=== PATIENT | female | born 1985 | race Caucasian/White ===

== ENCOUNTER 2019-01-15 18:48 | Emergency (ER) | payer OTHER ==
[~2019-01-15] VITALS: Ht 152.4 cm; Wt 100.5 kg
[~2019-01-15 18:48] MED LIST: AMOX1TAB9 PO; IBUP800T48 PO
[2019-01-15 18:50] VITALS: BP 140/70; PULSE 66; RESP 16; Ht 152.4 cm; Wt 100.5 kg
[2019-01-15] MEDS ORDERED: IBUPROFEN 800 MG TAB PO ONE (19:30)
== END 2019-01-15 19:47 | disposition home or self-care (01) ==
LOC: FTE 18:48
DX: K08.9 Disorder of teeth and supporting structures, unspecified (principal)
CPT/HCPCS: 81025; Z7502; Z7610; 99282